=== PATIENT | male | born 1975 ===

== ENCOUNTER 2018-12-08 15:55 | Emergency (ER) | payer OTHER ==
--- NOTE | 2018-12-08 16:36 | UC ---
Skin Complaint HPI - HPI Summary HPI Summary: 43-year-old male presents with 2 day history of an erythematous, pruritic rash to his right groin near the base of his penis. States he has had a couple of previous similar episodes that resolved on their own. He also notes areas of dry patchiness to his bilateral hands and wrists for over the past month. He did travel to [place] recently from 11/08/2018 until 12/02/2018. He also reports that he does have an obsessive compulsive disorder in which she feels compelled to wash his hands multiple times a day. Denies fever, chills, recent flulike symptoms, swelling of the lips, tongue, throat, difficulty breathing, abdominal pain, nausea, vomiting, diarrhea, recent changes in medications, diet , soaps, lotions, detergents, deodorants, or known contact with environmental irritants. - History of Current Complaint Chief Complaint: UCSkin Time Seen by Provider: 12/08/18 16:18 Stated Complaint: RASH Hx Obtained From: Patient Pain Intensity: 1 - Allergy/Home Medications Allergies/Adverse Reactions: Allergies Allergy/AdvReac Type Severity Reaction Status Date / Time No Known Allergies Allergy Verified 12/08/18 16:17 Home Medications: Home Medications Tavor 1 tab PO WEEKLY 12/08/18 [History Confirmed 12/08/18] PMH/Surg Hx/FS Hx/Imm Hx Previously Healthy: Yes - Denies significant PMH Psychological History: Other - Obsessive compulsion - Surgical History Surgical History: None - Family History Known Family History: Positive: Non-Contributory - Social History Occupation: Employed Full-time Lives: With Family Alcohol Use: None Substance Use Type: None Smoking Status (MU): Former Smoker Review of Systems All Other Systems Reviewed And Are Negative: Yes Constitutional: Negative: Fever, Chills Skin: Positive: Other - See HPI ENT: Positive: Negative Respiratory: Negative: Shortness Of Breath, Cough Cardiovascular: Positive: Negative Gastrointestinal: Positive: Negative Genitourinary: Positive: Negative Musculoskeletal: Positive: Negative Neurological: Positive: Negative Is Patient Immunocompromised?: No Physical Exam - Summary Physical Exam Summary: GENERAL APPEARANCE: Well developed, well nourished, alert and cooperative, and appears to be in no acute distress. THROAT: Pharynx normal. No tonsilar inflammation, swelling, exudate, or lesions. Airway patent. NECK: Neck supple, non-tender without lymphadenopathy. CARDIAC: Normal S1 and S2. No S3, S4 or murmurs. Rhythm is regular. There is no peripheral edema, cyanosis or pallor. Extremities are warm and well perfused. Capillary refill is less than 2 seconds. LUNGS: Clear to auscultation without rales, rhonchi, wheezing or diminished breath sounds. ABDOMEN: Positive bowel sounds. Soft, nondistended, nontender. No guarding or rebound. No masses or hepatosplenomegally. MUSKULOSKELETAL: ROM intact to all extremities. No joint erythema or tenderness. Normal muscular development. Normal gait. SKIN: Several dry, flaky, non-tender patches to to bilateral palmar hands and wrists. Small area of scaly, erythema with pruritis to right groin near the base of the penis. Triage Information Reviewed: Yes Vital Signs: Initial Vital Signs Temp 98 F 12/08/18 16:09 Pulse 80 12/08/18 16:09 Resp 16 12/08/18 16:09 BP 123/78 12/08/18 16:09 Pulse Ox 97 12/08/18 16:09 Vital Signs Reviewed: Yes Course/Dx - Course Course Of Treatment: 43-year-old male presents with 2 day history of an erythematous, pruritic rash to his right groin near the base of his penis. States he has had a couple of previous similar episodes that resolved on their own. He also notes areas of dry patchiness to his bilateral hands and wrists for over the past month. He did travel to [place] recently from 11/08/2018 until 12/02/2018. He also reports that he does have an obsessive compulsive disorder in which she feels compelled to wash his hands multiple times a day. Denies fever, chills, recent flulike symptoms, swelling of the lips, tongue, throat, difficulty breathing, abdominal pain, nausea, vomiting, diarrhea, recent changes in medications, diet, soaps, lotions, detergents, deodorants, or known contact with environmental irritants. Afebrile. Vital signs stable. Exam revealed some patches of dry, scaly skin to bilateral palmar hands and wrists consistent with dry skin likely from his constant handwashing. There was also a small area of scaly, pruritic, erythema to right groin near the base of the penis that appears to be an early tinea crusis. Recommending clotrimazole cream BID for the tinea infection and a moisturizing lotion for the hands and wrists. He is to follow up here or with his PCP in 7 days if no improvement in symptoms. Anticipatory guidance and warning symptoms reviewed with patient. Verbalizes understanding and agrees with POC. - Differential Diagnoses - Skin Complaint Differential Diagnoses: Cellulitis, Contact Dermatitis, Local Allergic Reaction , MRSA, Tinea - Diagnoses Provider Diagnosis: Tinea cruris, Dry skin dermatitis Discharge - Sign-Out/Discharge Documenting (check all that apply): Patient Departure All imaging exams completed and their final reports reviewed: No Studies - Discharge Plan Condition: Stable Disposition: HOME Prescriptions: Clotrimazole 1% CREAM* [Clotrimazole 1%*] 1 applic TOPICAL BID #1 tube Patient Education Materials: Jock Itch (ED) Referrals: No Primary Care Phys,NOPCP [Primary Care Provider] - [facility] [Outside] Additional Instructions: Your rash appears to be early tinea crusis (Jock itch) which is a fungal skin infection. Apply clotrimazole cream to the affected area twice a day until cleared then continue for 2 more days. The rashes on your hands appears to be severe dry skin. I would recommend using a good moisturizing lotion such as Lubriderm to see if this clears it up. Follow up here or with your primary care provider in 7 days if no improvement in symptoms. I have given you the number for the [facility] referral service if you need assistance with scheduling an appointment with a primary care provider. Seek immediate medical attention if you develop fever, chills, swelling of the lips, tongue, throat, difficulty breathing, or any worsening of symptoms. - Billing Disposition and Condition Condition: STABLE Disposition: Home
== END 2018-12-08 17:10 | disposition home or self-care (01) ==
LOC: UCEAST 15:55
DX: B35.6 Tinea cruris (principal); L85.3 Xerosis cutis; Z87.891 Personal history of nicotine dependence
CPT/HCPCS: 99202; G0463